=== PATIENT | female | born 1990 | race American Indian/Alaskan Native ===

== ENCOUNTER 2017-11-24 17:56 | Emergency (ER) | payer SELFPAY ==
[2017-11-24 18:34] VITALS: BP 106/55
[2017-11-24] MEDS ORDERED: MOTRIN PO ONE (18:40)
[2017-11-24] MEDS ORDERED: MOTRIN ONE (18:40)
== END 2017-11-24 20:35 | disposition left against medical advice (07) ==
LOC: ED 17:56
DX: H92.02 Otalgia, left ear (principal); Z53.21 Procedure and treatment not carried out due to patient leaving prior to being seen by health care provider